=== PATIENT | male | born 2000 | race Caucasian/White ===

== ENCOUNTER 2020-06-04 08:56 | Emergency (ER) | payer OTHER ==
[~2020-06-04] VITALS: Ht 177.8 cm; Wt 68.9 kg
--- NOTE | 2020-06-04 09:10 | NUR ---
PATIENT WALKED BACK FROM TRIAGE WITH CHIEF COMPLAINT OF LACERATION TO LEFT WRIST. 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 ERMD AT BEDSIDE FOR EVALUATION. BLEEDING CONTROLLED.
[2020-06-04] MEDS ORDERED: DIPH,PERTUSS(ACELL),TET VAC/PF 0.5 ML IM-VACC ONE ×2 (09:19→09:30)
--- NOTE | 2020-06-04 09:27 | NUR ---
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 Tdap VACCINE GIVEN.
[2020-06-04 09:30] VITALS: BP 121/73
[2020-06-04] MEDS ORDERED: LIDOCAINE-MPF 1%, 5ML ONE (09:33)
[2020-06-04] MEDS ORDERED: LIDOCAINE-MPF 1%, 5ML INFIL ONE (10:00)
--- NOTE | 2020-06-04 10:02 | NUR ---
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 PLACED GAUZE AND CURLEX OVER STICHES. PATIENT WALKED TO DISCHARGE DESK WITH STEADY GAIT, NO FURTHER QUESTIONS.
== END 2020-06-04 10:03 | disposition home or self-care (01) ==
LOC: ED 09:48
DX: S61.512A Laceration without foreign body of left wrist, initial encounter (principal); W25.XXXA Contact with sharp glass, initial encounter; Y93.89 Activity, other specified; Y92.098 Other place in other non-institutional residence as the place of occurrence of the external cause; Y99.8 Other external cause status
CPT/HCPCS: 12001; 90471; 90715; 99283